=== PATIENT | female | born 1980 | race Caucasian/White ===

== ENCOUNTER 2018-07-30 16:45 | Emergency (ER) | payer BC ==
[2018-07-30 17:12] VITALS: BP 153/84
--- NOTE | 2018-07-30 17:32 | UC ---
Skin Complaint HPI - HPI Summary HPI Summary: patient had multiple bug bites on the right lower leg, they are draining and itchy, now the area is more red and warm to touch. - History of Current Complaint Chief Complaint: UCSkin Time Seen by Provider: 07/30/18 17:23 Stated Complaint: RIGHT LEG SKIN CONCERN Hx Obtained From: Patient Hx Last Menstrual Period: 07/06/18 Pain Intensity: 2 - Allergy/Home Medications Allergies/Adverse Reactions: Allergies Allergy/AdvReac Type Severity Reaction Status Date / Time seasonal allergy Allergy Congestion Uncoded 07/30/18 17:12 Home Medications: Home Medications Cetirizine* [ZyrTEC 10 MG TAB*] 10 mg PO DAILY 07/30/18 [History Confirmed 07/30] Estradiol TAB(NF) 2 mg PO DAILY 07/30/18 [History Confirmed 07/30/18] medroxyPROGESTERone TAB* [Provera TAB*] 10 mg PO SEE INSTRUCTIONS 07/30/18 [ History Confirmed 07/30/18] PMH/Surg Hx/FS Hx/Imm Hx - Surgical History Surgical History: Yes Surgery Procedure, Year, and Place: Ear tubes x3, tonsils and adenoids - Family History Known Family History: Positive: Hypertension - Social History Alcohol Use: None Substance Use Type: None Smoking Status (MU): Never Smoked Tobacco - Immunization History Most Recent Influenza Vaccination: has not had Review of Systems All Other Systems Reviewed And Are Negative: Yes Constitutional: Positive: Negative Skin: Positive: Other - redness and bug bites Eyes: Positive: Negative ENT: Positive: Negative Respiratory: Positive: Negative Cardiovascular: Positive: Negative Gastrointestinal: Positive: Negative Genitourinary: Positive: Negative Motor: Positive: Negative Neurovascular: Positive: Negative Musculoskeletal: Positive: Negative Neurological: Positive: Negative Psychological: Positive: Negative Is Patient Immunocompromised?: No Physical Exam Triage Information Reviewed: Yes Appearance: Well-Appearing, Well-Nourished, Pain Distress Vital Signs: Initial Vital Signs Temp 98.3 F 07/30/18 17:08 Pulse 79 07/30/18 17:08 Resp 16 07/30/18 17:08 BP 153/84 07/30/18 17:08 Pulse Ox 100 07/30/18 17:08 Vital Signs Reviewed: Yes Eye Exam: Normal ENT Exam: Normal Dental Exam: Normal Neck exam: Normal Respiratory Exam: Normal Cardiovascular Exam: Normal Abdominal Exam: Normal Bowel Sounds: Positive: Present Musculoskeletal Exam: Normal Neurological Exam: Normal Psychological Exam: Normal Skin: Positive: Other - 3 inch diameter of erythema with 4 blistered areas in the middle. warm to touch Course/Dx - Course Course Of Treatment: hx obtained, exam performed ,meds reviewed, treated for cellulitis from a bug bite. - Differential Diagnoses - Skin Complaint Differential Diagnoses: Abscess, Cellulitis, Contact Dermatitis, Poison Char, Poison [place] - Diagnoses Provider Diagnosis: Cellulitis Discharge - Sign-Out/Discharge Documenting (check all that apply): Patient Departure All imaging exams completed and their final reports reviewed: No Studies - Discharge Plan Condition: Stable Disposition: HOME Prescriptions: Cephalexin CAP* [Keflex CAP*] 500 mg PO BID #14 cap Patient Education Materials: Cellulitis (ED) Referrals: Tanja Gentile MD [Primary Care Provider] - Additional Instructions: 1. use the medication as prescribed. 2. COntinue with the zyrtec 3. Follow up if not improving. - Billing Disposition and Condition Condition: STABLE Disposition: Home - Attestation Statements Provider Attestation: I was available for consult. This patient was seen by the MATTY. The patient was not presented to, seen by, or examined by me. -Maritza
== END 2018-07-30 17:36 | disposition home or self-care (01) ==
LOC: UCCORT 16:45
DX: L03.115 Cellulitis of right lower limb (principal); J30.2 Other seasonal allergic rhinitis
CPT/HCPCS: 99212; G0463

== ENCOUNTER 2018-08-19 16:50 | Emergency (ER) | payer BC ==
[2018-08-19 17:37] VITALS: BP 135/94
--- NOTE | 2018-08-19 17:57 | UC ---
Skin Complaint HPI - HPI Summary HPI Summary: 38-year-old female comes in with a chief complaint of redness to the left forearm. Bug [id number]. Today the redness around the area has gotten larger. It does itch it's not painful. No drainage no streaking. No fevers no chills. Feels well otherwise. This is similar to prior lesions on the right lower leg that the patient was treated with Keflex and she got better. - History of Current Complaint Chief Complaint: UCSkin Time Seen by Provider: 08/19/18 17:50 Stated Complaint: SKIN ISSUE LEFT FOREARM Hx Last Menstrual Period: August 07 Pain Intensity: 0 - Allergy/Home Medications Allergies/Adverse Reactions: Allergies Allergy/AdvReac Type Severity Reaction Status Date / Time seasonal allergy Allergy Congestion Uncoded 08/19/18 17:37 PMH/Surg Hx/FS Hx/Imm Hx Previously Healthy: Yes - Surgical History Surgical History: Yes Surgery Procedure, Year, and Place: Ear tubes x3, tonsils and adenoids - Family History Known Family History: Positive: Hypertension - Social History Alcohol Use: None Substance Use Type: None Smoking Status (MU): Never Smoked Tobacco - Immunization History Most Recent Influenza Vaccination: has not had Review of Systems All Other Systems Reviewed And Are Negative: Yes Constitutional: Positive: Negative Skin: Positive: Other - see hpi Eyes: Positive: Negative ENT: Positive: Negative Respiratory: Positive: Negative Cardiovascular: Positive: Negative Gastrointestinal: Positive: Negative Motor: Positive: Negative Neurovascular: Positive: Negative Musculoskeletal: Positive: Negative Neurological: Positive: Negative Psychological: Positive: Negative Is Patient Immunocompromised?: No Physical Exam Triage Information Reviewed: Yes Appearance: Well-Appearing, No Pain Distress, Well-Nourished Vital Signs: Initial Vital Signs Temp 98.0 F 08/19/18 17:29 Pulse 65 08/19/18 17:29 Resp 18 08/19/18 17:29 BP 135/94 08/19/18 17:29 Pulse Ox 100 08/19/18 17:29 Vital Signs Reviewed: Yes Eye Exam: Normal Eyes: Positive: Conjunctiva Clear Neck: Positive: Supple Respiratory: Positive: No respiratory distress Musculoskeletal: Positive: Strength Intact, ROM Intact Neurological: Positive: Alert, Muscle Tone Normal Psychological Exam: Normal Psychological: Positive: Age Appropriate Behavior Skin: Positive: Other - On the left forearm on the left forearm there are 2 areas each 4 cm in diameter that are erythematous and raised in the center. No streaking. Course/Dx - Course Course Of Treatment: Cellulitis verses localized reaction to insect bites - Diagnoses Provider Diagnosis: Insect bite of forearm, infected Discharge - Sign-Out/Discharge Documenting (check all that apply): Patient Departure All imaging exams completed and their final reports reviewed: No Studies - Discharge Plan Condition: Stable Disposition: HOME Prescriptions: Cephalexin CAP* [Keflex CAP*] 500 mg PO TID #21 cap Patient Education Materials: Cellulitis (ED), Insect Bite or Sting (ED) Referrals: Tanja Gentile MD [Primary Care Provider] - Additional Instructions: FOLLOW UP WITH YOUR DOCTOR IF NOT COMPLETELY IMPROVED. YOU CAN TAKE BENADRYL DIRECTED NEEDED FOR THE ITCHING. GET RECHECKED SOONER IF YOUR CONDITION WORSENS OR ANY QUESTIONS OR CONCERNS. - Billing Disposition and Condition Condition: STABLE Disposition: Home
== END 2018-08-19 18:05 | disposition home or self-care (01) ==
LOC: UCCORT 16:50
DX: S50.861A Insect bite (nonvenomous) of right forearm, initial encounter (principal); L08.9 Local infection of the skin and subcutaneous tissue, unspecified; Z91.09 Other allergy status, other than to drugs and biological substances; W57.XXXA Bitten or stung by nonvenomous insect and other nonvenomous arthropods, initial encounter; Y92.9 Unspecified place or not applicable
CPT/HCPCS: 99212; G0463